=== PATIENT | female | born 1995 | race Caucasian/White ===

== ENCOUNTER → 2017-08-13 14:53 | Outpatient (CLI) | payer OTHER, SELFPAY ==
[2017-08-13 15:30] LABS: Pregnancy Test Urine Negative (Negative)
== END ==
PROVIDERS: PCP Internal Medicine; Visit Provider Physician Assistant
DX: Z79.899 Other long term (current) drug therapy (principal); L70.0 Acne vulgaris
CPT/HCPCS: 81025

== ENCOUNTER → 2017-09-08 15:32 | Outpatient (CLI) | payer OTHER, SELFPAY | PROVIDERS: Family Provider Family Medicine; PCP Internal Medicine; Visit Provider Physician Assistant | DX: R11.0 Nausea (principal) | CPT/HCPCS: 87177 ==

== ENCOUNTER → 2017-09-13 09:38 | Outpatient (CLI) | payer OTHER, SELFPAY ==
[2017-09-13 10:23] LABS: Add Manual Diff / Slide Review NO; Basophils Percent Auto 0.5 % (0-2); Eosinophils Percent Auto 1.6 % (2-4); Hematocrit 39.1 % (36-46); Lymphocytes Percent Auto 30.3 % (25-40); Mean Corpuscular HGB Conc 33.1 % (30-36); Mean Corpuscular Hemoglobin 27.3 PG (26-34); Mean Corpuscular Volume 82.4 fL (80-100); Monocytes Percent Auto 8.5 % (3-14); Neutrophils Absolute Auto 4200 /uL (3000-5900); Neutrophils Percent Auto 59.1 % (50-75); Platelet Count 212 X10^3/uL (150-400); Red Blood Cell Count 4.75 X10^6/uL (4.0-5.2); Red Cell Distribution Width 14.4 % (11.6-14.8); White Blood Cell Count 7.1 X10^3/uL (4.5-11.0)
[2017-09-13 10:57] LABS: Alanine Aminotransferase 19 IU/L (9-52); Albumin 4.5 g/dL (3.5-5.0); Albumin Globulin Ratio 1.5 (1.0-2.8); Alkaline Phosphatase 59 U/L (38-126); Aspartate Aminotransferase 21 IU/L (14-36); Bilirubin Total 0.6 mg/dL (0.2-1.3); Bilirubin Unconjugated 0.3 mg/dL (0.0-1.1); Cholesterol 175 mg/dL (140-199); Globulin 3.1 g/dL (1.7-4.1); HDL Cholesterol 46 mg/dL (40-60); HEMOLYSIS < 15 (0-50); LDL Cholesterol Calculated 106 mg/dL (<100); Total Protein 7.6 g/dL (6.3-8.2); Triglycerides 114 mg/dL (35-150)
[2017-09-13 11:08] LABS: LDL Cholesterol Direct 114 mg/dL (<100)
[2017-09-13 11:13] LABS: HCG Quantitative /Beta subunit < 2.39 mIU/mL
== END ==
PROVIDERS: Family Provider Family Medicine; PCP Internal Medicine; Visit Provider Physician Assistant
DX: Z79.899 Other long term (current) drug therapy (principal)
CPT/HCPCS: 36415; 80061; 80076; 83721; 84702; 85025

== ENCOUNTER → 2017-10-18 13:00 | Outpatient (CLI) | payer OTHER, SELFPAY ==
[2017-10-18 13:36] LABS: Add Manual Diff / Slide Review NO; Basophils Percent Auto 0.2 % (0-2); Eosinophils Percent Auto 1.4 % (2-4); Hematocrit 38.4 % (36-46); Lymphocytes Percent Auto 25.3 % (25-40); Mean Corpuscular Hemoglobin 27.3 PG (26-34); Mean Corpuscular Volume 80.5 fL (80-100); Monocytes Percent Auto 6.6 % (3-14); Neutrophils Absolute Auto 5800 /uL (3000-5900); Neutrophils Percent Auto 66.5 % (50-75); Platelet Count 203 X10^3/uL (150-400); Red Blood Cell Count 4.77 X10^6/uL (4.0-5.2); Red Cell Distribution Width 14.1 % (11.6-14.8); White Blood Cell Count 8.8 X10^3/uL (4.5-11.0)
[2017-10-18 14:16] LABS: Alanine Aminotransferase 22 IU/L (9-52); Albumin 4.3 g/dL (3.5-5.0); Albumin Globulin Ratio 1.3 (1.0-2.8); Alkaline Phosphatase 63 U/L (38-126); Aspartate Aminotransferase 26 IU/L (14-36); Bilirubin Total 0.5 mg/dL (0.2-1.3); Bilirubin Unconjugated 0.2 mg/dL (0.0-1.1); Cholesterol 176 mg/dL (140-199); Globulin 3.4 g/dL (1.7-4.1); HDL Cholesterol 34 mg/dL (40-60); HEMOLYSIS < 15 (0-50); LDL Cholesterol Calculated 105 mg/dL (<100); Total Protein 7.7 g/dL (6.3-8.2); Triglycerides 183 mg/dL (35-150)
[2017-10-18 14:26] LABS: LDL Cholesterol Direct 104 mg/dL (<100)
[2017-10-18 14:33] LABS: HCG Quantitative /Beta subunit < 2.39 mIU/mL
== END ==
PROVIDERS: PCP Internal Medicine; Visit Provider Physician Assistant
DX: L70.0 Acne vulgaris (principal); Z79.899 Other long term (current) drug therapy; L20.84 Intrinsic (allergic) eczema
CPT/HCPCS: 36415; 80061; 80076; 83721; 84702; 85025

== ENCOUNTER → 2018-08-08 16:46 | Outpatient (CLI) | payer OTHER, SELFPAY ==
[2018-08-08 17:39] LABS: Pregnancy Test Urine Negative (Negative)
== END ==
PROVIDERS: Visit Provider Physician Assistant
DX: Z79.899 Other long term (current) drug therapy (principal)
CPT/HCPCS: 81025

== ENCOUNTER → 2018-09-08 12:46 | Outpatient (CLI) | payer OTHER, SELFPAY ==
[2018-09-08 13:43] LABS: Pregnancy Test Urine Negative (Negative)
== END ==
PROVIDERS: Visit Provider Physician Assistant
DX: L70.0 Acne vulgaris (principal); Z79.899 Other long term (current) drug therapy
CPT/HCPCS: 81025

== ENCOUNTER → 2018-10-14 14:08 | Outpatient (CLI) | payer OTHER, SELFPAY ==
[2018-10-14 14:29] LABS: Pregnancy Test Urine Negative (Negative)
== END ==
PROVIDERS: Visit Provider Physician Assistant
DX: Z79.899 Other long term (current) drug therapy (principal); L70.0 Acne vulgaris
CPT/HCPCS: 81025

== ENCOUNTER → 2020-01-04 14:35 | Outpatient (CLI) | payer OTHER, SELFPAY ==
[2020-01-04 16:27] LABS: Add Manual Diff / Slide Review NO; Basophils Absolute Auto 0 /uL (0-100); Basophils Percent Auto 0.3 % (0-2); Eosinophils Absolute Auto 100 /uL (0-450); Eosinophils Percent Auto 0.6 % (2-4); Hematocrit 39.4 % (36-46); Hemoglobin 13.2 g/dL (12.0-16.0); Lymphocytes Absolute Auto 2000 /uL (1100-4500); Lymphocytes Percent Auto 22.3 % (25-40); Mean Corpuscular HGB Conc 33.5 % (30-36); Mean Corpuscular Hemoglobin 27.9 PG (26-34); Mean Corpuscular Volume 83.4 fL (80-100); Monocytes Absolute Auto 500 /uL (0-900); Monocytes Percent Auto 5.8 % (3-14); Neutrophils Absolute Auto 6500 /uL (1500-7000); Platelet Count 252 X10^3/uL (150-400); Red Blood Cell Count 4.72 X10^6/uL (4.0-5.2); White Blood Cell Count 9.1 X10^3/uL (4.5-11.0)
[2020-01-04 16:53] LABS: Alanine Aminotransferase 56 IU/L (<35); Albumin 4.2 g/dL (3.5-5.0); Albumin Globulin Ratio 1.2 (1.0-2.8); Alkaline Phosphatase 70 U/L (38-126); Aspartate Aminotransferase 39 IU/L (14-36); BUN Creatinine Ratio 18.3 (6-22); Bilirubin Total 0.5 mg/dL (0.2-1.3); Blood Urea Nitrogen 13 mg/dL (7-17); Calcium 9.2 mg/dL (8.4-10.2); Carbon Dioxide 31 mmol/L (22-32); Chloride 102 mmol/L (98-107); Estimated Glomerular Filt Rate > 60.0 mL/min (>60); Globulin 3.5 g/dL (1.7-4.1); Glucose 79 mg/dL (70-100); HEMOLYSIS < 15 (0-50); Potassium 3.9 mmol/L (3.4-5.1); Sodium 137 mmol/L (137-145); Total Protein 7.7 g/dL (6.3-8.2)
== END ==
PROVIDERS: PCP Registered Nurse; Referring Provider Registered Nurse; Visit Provider Registered Nurse
DX: Z79.899 Other long term (current) drug therapy (principal)
CPT/HCPCS: 36415; 80053; 85025

== ENCOUNTER → 2020-01-19 11:25 | Outpatient (CLI) | payer OTHER, SELFPAY ==
[2020-01-19 13:28] LABS: Alanine Aminotransferase 51 IU/L (<35); Albumin 3.9 g/dL (3.5-5.0); Albumin Globulin Ratio 1.3 (1.0-2.8); Alkaline Phosphatase 59 U/L (38-126); Aspartate Aminotransferase 36 IU/L (14-36); Bilirubin Total 0.2 mg/dL (0.2-1.3); Bilirubin Unconjugated 0.2 mg/dL (0.0-1.1); HEMOLYSIS < 15 (0-50); Total Protein 6.9 g/dL (6.3-8.2)
== END ==
PROVIDERS: PCP Registered Nurse; Referring Provider Registered Nurse; Visit Provider Registered Nurse
DX: R74.8 Abnormal levels of other serum enzymes (principal)
CPT/HCPCS: 36415; 80076